=== PATIENT | female | born 1995 | race Asian ===

== ENCOUNTER 2019-04-04 16:23 | Emergency (ER) | payer OTHER ==
[2019-04-04] MEDS ORDERED: Lidocaine/Epineph/Tetraca (NF) 4 ML BTL TOPICAL ONE (17:22)
--- NOTE | 2019-04-04 17:23 | ED ---
Adult Trauma - HPI Summary HPI Summary: This pt is a 24 y/o female presenting to [facility] via EMS for facial lacerations s/ p injury from experiment. Pt reports she was performing a lab experiment with a pressure bottle and a magnifying glass. She states the cap from the bottle flew and hit the magnifying glass striking the left side of her face. Denies LOC. She reports she was alert after but might have been dazed. Currently pt notes she had numbness on left side of her face. Denies visual changes of left eye. She reports some headache. Denies nausea and vomiting. Denies any PMHx. - History of Current Complaint Chief Complaint: EDFacialInjury Stated Complaint: FACIAL INJURY PER EMS Time Seen by Provider: 04/04/19 17:16 Hx Obtained From: Patient Mechanism of Injury: Direct Blow Loss of Consciousness: no loss of consciousness Restraints: None Onset/Duration: Started Hours Ago, Still Present Onset of Pain: Immediate Current Severity: Moderate Pain Intensity: 2 Pain Scale Used: 0-10 Numeric Location: Other - left sided facial pain Aggravating Factor(s): Nothing Alleviating Factor(s): Nothing Associated Signs & Symptoms: Positive: Numbness/Weakness - numbness on left side of face, Other: - POSITIVE: headache, left sided facial pain.. Negative: Fever, Nausea/Vomiting, Loss of Consciousness - Allergy/Home Medications Allergies/Adverse Reactions: Allergies Allergy/AdvReac Type Severity Reaction Status Date / Time No Known Allergies Allergy Verified 04/04/19 17:14 PMH/Surg Hx/FS Hx/Imm Hx Endocrine/Hematology History: Denies: Hx Diabetes Cardiovascular History: Denies: Hx Hypertension Infectious Disease History: No Infectious Disease History: Denies: Traveled Outside the [place] in Last 30 Days - Family History Known Family History: Negative: Cardiac Disease, Hypertension, Diabetes - Social History Alcohol Use: None Substance Use Type: Reports: None Smoking Status (MU): Never Smoked Tobacco Review of Systems Negative: Fever Negative: Other - NEGATIVE: visual changes of left eye ENT: Other - POSITIVE: left side facial pain Negative: Vomiting, Nausea Positive: Headache, Numbness - on left side of face All Other Systems Reviewed And Are Negative: Yes Physical Exam - Summary Physical Exam Summary: Appearance: Well-appearing, Well-nourished, lying in bed comfortable Skin: Warm, dry. Eyes: sclera anicteric, no conjunctival pallor. Blunt trauma to the left cheek and periorbital area with associated swelling. No deformity. 1 cm jagged laceration about the left eye. The globe itself appears uninjured. No hyphema. Extraocular movement is intact. ENT: mucous membranes moist. There are superficial lacerations of lower left cheek with associated abrasions and tiny lacerations near the left eye. Neck: deferred Respiratory: No signs of respiratory distress Cardiovascular: Appears well perfused, pulses are nml Abdomen: deferred Musculoskeletal: Moving all 4 extremities without obvious discomfort Neurological: Awake and alert, mentation is normal, speech is fluent and appropriate Psychiatric: affect is normal, does not appear anxious or depressed Triage Information Reviewed: Yes Vital Signs On Initial Exam: Initial Vitals Temp Pulse Resp BP Pulse Ox 98 F 73 16 145/94 96 04/04/19 16:26 04/04/19 16:26 04/04/19 16:26 04/04/19 16:26 04/04/19 16:26 Vital Signs Reviewed: Yes Procedures - Laceration/Wound Repair 1 Location: face Description: Irregular - jagged Anesthesia: Lido - LET gel topical anesthesia Length, Depth and Shape: 1 cm Laceration/Wound Explored: clean Closure: Skin Adhesive Debridement: minimal Diagnostics - Vital Signs Vital Signs Temp Pulse Resp BP Pulse Ox 04/04/19 16:26 98 F 73 16 145/94 96 - Laboratory Lab Statement: Any lab studies that have been ordered have been reviewed, and results considered in the medical decision making process. Adult Trauma Course/Dx - Course Assessment/Plan: Pt is a 24 y/o female presenting to the ED for facial lacerations s/p injury from experiment. Pt reports she was performing a lab experiment with a pressure bottle and a magnifying glass. She states the cap from the bottle flew and hit the magnifying glass striking the left side of her face. Denies LOC. She reports she was alert after but might have been dazed. On exam pt has blunt trauma to the left cheek and periorbital area with associated swelling. No deformity. 1 cm jagged laceration about the left eye. The globe itself appears uninjured. No hyphema. Extraocular movement is intact. There are superficial lacerations of lower left cheek with associated abrasions and tiny lacerations near the left eye. Her lacerations were repaired with skin adhesive and sutures. Pt was instructed to have her sutures removed in 5 days. She was advised to take Tylenol or Motrin for her pain and use ice as well. Pt was given a prescription for Penicillin. She is instructed to return to the ED for any worsening or new symptoms. - Diagnoses Provider Diagnoses: Facial contusion, Facial laceration Discharge - Sign-Out/Discharge Documenting (check all that apply): Patient Departure - Discharge home Patient Received Moderate/Deep Sedation with Procedure: No - Discharge Plan Condition: Good Disposition: HOME Prescriptions: Penicillin VK 500 MG TAB(NF) [Penicillin VK 500 mg Tab] 500 mg PO QID #20 tab Patient Education Materials: Care For Your Stitches (ED), Skin Adhesive Care ( ED), Facial Contusion (ED), Facial Laceration (ED) Referrals: [facility] [Outside] No Primary Care Phys,NOPCP [Primary Care Provider] - Additional Instructions: Your wounds were repaired with a combination of skin adhesive and stitches. The latter will need to be removed in 5 days. You are likely to have pain, swelling and bruising over the weekend, using tylenol or motrin and icing the area frequently as we discussed can keep that down. Showering is perfectly fine and is actually good at keeping the area clean. Take the preventive antibiotics as prescribed. Facial wounds have a very low rate of infection but if the wound becomes very red, swollen or painful we should check that out back here in the ED. - Attestation Statements Document Initiated by Marcusibe: Yes Documenting Scribe: Raiza Hernandez Provider For Whom Pino is Documenting (Include Credential): Jose Vazquez MD Scribe Attestation: IRaiza, scribed for Jose Vazquez MD on 04/04/19 at 1924. Status of Scribe Document: Ready
[2019-04-04] MEDS ORDERED: Lidocaine/Epineph/Tetraca GEL* 3 ML GEL IN SYR ONE (17:34)
[2019-04-04] MEDS ORDERED: Lidocaine/Epineph/Tetraca GEL* 3 ML GEL IN SYR TOPICAL ONE (18:00)
[2019-04-04] MEDS ORDERED: Penicillin VK TAB* 250 MG PO ONE (18:57)
[2019-04-04 19:30] VITALS: BP 123/89
== END 2019-04-04 19:31 | disposition home or self-care (01) ==
LOC: ED 16:23
DX: S01.81XA Laceration without foreign body of other part of head, initial encounter (principal); S00.83XA Contusion of other part of head, initial encounter; W25.XXXA Contact with sharp glass, initial encounter; Y92.9 Unspecified place or not applicable
CPT/HCPCS: 12011; 99282; A9270-GY